=== PATIENT | male | born 1940 | race Caucasian/White ===

== ENCOUNTER → 2017-10-30 | Outpatient (CLI) | payer MEDICARE, OTHER ==
[~2017-10-30] MED LIST: ALLOPURINOL 10100 M1 PO; ASPIR 8181 MG PO; BRILINTA90 MG PO; CIMETIDINE 400400 MG PO; COREG3.125 MG PO; EFFIENT10 MG PO; ELIQUIS2.5 MG PO; FLEXERIL PO; KLOR-CON 1010 MEQ PO; LASIX 20 MG TAB20 MG PO; LEVAQUIN 500 M500 M2 PO; LEVOTHYROXIN0.025 MG PO; LIPITOR 20 MG T20 M1 PO; LISINOPRIL2.5 MG PO; LOPRESSOR25 PO; MACROBID 100 M100 MG PO; PACERONE 200 M200 M1 PO; PREDNISONE 20 M20 M1 PO; PROAIR HFA8.5 GM INH; PYRIDIUM200 M2 PO; SYNTHROID; SYNTHROID125 MC1 PO; TYLENOL PM EX-1 EACH PO; UROXATRAL; VENTOLIN HFA 1818 GM INH; XANAX 0.5 MG0.5 MG PO; ZANTAC 150MG T150 MG PO
--- NOTE | 2017-10-30 17:57 | CARDNUC ---
[place] [address] CARDIAC NUCLEAR IMAGING REPORT Name: BRADLEY CERVANTES Room: [facility]#: [id number] Admission: 10/30/17 Attend Phys: Carlton Webber, Discharge: Date of : 40 Date of Service: 10/30/17 1757 Report #: [id number] THIS REPORT FOR: //name// APPROVED REPORT Exam: Nuclear Stress Test Indication: Chest pain Patient Location: Out-Patient Stress Tech: Margo Rodriguez Stress Nurse: Nga Lynch RN Ht: 5 ft 11 in Wt: 197 lbs BSA: 2.10 m2 BMI: 27.47 Medical History Medical History: CAD s/p MN, CAD s/p stent, ICD, Heart failure, Cardiomyopathy Medications: atorvastatin Allergies: No known drug allergies Cardiac Risk Factors: Age, Hyperlipidemia Previous Cardiac Procedures: Myocardial infarction, PCI, ICD Exercise History: Sedentary Stress Test Details Stress Test: Pharmacologic stress testing performed using 0.4 mg of regadenoson per 5 mL given IV over 10 seconds. Reason for pharmacologic stress test: physical limitation. HR Resting HR: 87 bpm Max Heart Rate (APMHR): 143 bpm Max HR Achieved: 102 bpm Target HR (85% APMHR): 121 bpm % of APMHR: 71 Recovery HR: 92 bpm BP Resting BP: 130/81 mmHg Max BP: 139/70 mmHg ECG Resting ECG: Paced Rhythm Stress ECG: Paced Rhythm Recovery ECG: Paced Rhythm Clinical Reason for Termination: [place] [address] CARDIAC NUCLEAR IMAGING REPORT Name: BRADLEY CERVANTES Room: [facility] AMANDA Anju#: [id number] Admission: 10/30/17 Attend Phys: Carlton Webber, Discharge: Date of : 40 Date of Service: 10/30/17 1757 Report #: [id number] Stress Symptoms: None Exercise duration: 0 min sec Exercise capacity: 1.0 METs The patient had no significant symptoms with Lexiscan infusion. Stress ECG Conclusion The baseline 12-lead electrocardiogram shows AV sequential pacing. EKGs obtained during and post Lexiscan infusion show atrial sensed ventricular paced rhythm. No significant stress-induced arrhythmias identified. NM EXAM: Myocardial Perfusion REST/STRESS Resting Data Rest SPECT myocardial perfusion imaging was performed in supine position 45 minutes following the intravenous injection of 11.9 mCi of Tc-99m Sestamibi. Time of rest injection: 0750 Date: 10/30/2017 The images were gated to evaluate regional wall motion and calculate left ventricular ejection fraction. Administration Route: IV Administration Site: Right AC Pharmacologic Stress Pharmacologic stress test was performed by injecting Regadenoson 0.4 mg IV push followed by the intravenous injection of 36 mCi of Tc-99m Sestamibi. Time of stress injection: 919 Date: 10/30/2017 Administration Route: IV Administration Site: Right AC Gated Stress SPECT was performed 45 minutes after stress injection. The images were gated to evaluate regional wall motion and calculate left ventricular ejection fraction. Prone imaging was performed. Study Quality Study: Good Artifact: No artifact Study Data At rest, the left ventricular ejection fraction was 14%.. Post stress, the left ventricular ejection was 13%.. TID = 1.07. [place] [address] CARDIAC NUCLEAR IMAGING REPORT Name: BRADLEY CERVANTES Room: [facility]#: [id number] Admission: 10/30/17 Attend Phys: Carlton Webber, Discharge: Date of : 40 Date of Service: 10/30/17 1757 Report #: [id number] Perfusion There is a large in size severe in intensity defect involving the entire inferior parts of the inferolateral wall extending from base to apex. No significant reversible defects identified. Wall Motion There is severe global hypokinesis noted. The inferior wall inferolateral frost appear akinetic. The apex appears akinetic. Left ventricle is significantly dilated. Nuclear Conclusion ECG Findings: non-diagnostic Clinical Findings: negative for ischemia Nuclear Findings: negative for ischemia Exercise Capacity: not assessed Left Ventricular Function: abnormal Myocardial perfusion images at rest and stress suggest prior extensive inferolateral infarct. Gated images show a dilated ventricle that is severely hypokinetic to akinetic. Left ventricular systolic function is severely decreased as outlined above. The study is at least moderate risk based on underlying left ventricular systolic dysfunction. Findings consistent with ischemic cardiomyopathy. No findings of significant ischemia were identified. <Conclusion> The baseline 12-lead electrocardiogram shows AV sequential pacing. EKGs obtained during and post Lexiscan infusion show atrial sensed ventricular paced rhythm. No significant stress-induced arrhythmias identified. <ELECTRONICALLY SIGNED> By: Keenan Minor MD, FACC 10/30/171756 56 56 Keenan Minor MD, FACC /INF
== END ==
LOC: M.NUC 10-23 13:36
DX: I25.5 Ischemic cardiomyopathy (principal); N18.3 Chronic kidney disease, stage 3 (moderate); E78.5 Hyperlipidemia, unspecified; E03.9 Hypothyroidism, unspecified; I50.9 Heart failure, unspecified; Z95.810 Presence of automatic (implantable) cardiac defibrillator

== ENCOUNTER 2017-11-06 09:06 | Inpatient (IN) | payer MEDICARE, OTHER ==
[~2017-11-06] VITALS: Ht 182.9 cm; Wt 92.5 kg
[2017-11-06] VITALS (13 sets, daily range): BP systolic 111–125; BP diastolic 69–82
--- NOTE | ~2017-11-06 | H ---
[address] [address] HISTORY AND PHYSICAL Name: BRADLEY CERVANTES Room: [address] IN .R.#: [id number] Admission: 11/06/17 Attend Phys: Carlton Webber MD Discharge: 11/07/17 Date of : 40 Report #: [id number] THIS REPORT FOR: //name// Please refer to the History and Physical performed in the physician's office. By: 1147Medical Records Staff ALYSSA /BRITTANY
[~2017-11-06 09:06] MED LIST changes: -ASPIR 8181 MG PO; -BRILINTA90 MG PO; -EFFIENT10 MG PO; -ELIQUIS2.5 MG PO; -KLOR-CON 1010 MEQ PO; -LEVAQUIN 500 M500 M2 PO; -LISINOPRIL2.5 MG PO; -LOPRESSOR25 PO; -MACROBID 100 M100 MG PO; -PACERONE 200 M200 M1 PO; -PROAIR HFA8.5 GM INH; -PYRIDIUM200 M2 PO; -SYNTHROID; -SYNTHROID125 MC1 PO; -TYLENOL PM EX-1 EACH PO; -XANAX 0.5 MG0.5 MG PO; -ZANTAC 150MG T150 MG PO
[2017-11-06 09:47] LABS: HEMATOCRIT 40.5 % (42.0-52.0); HEMOGLOBIN 13.3 gm/dL (14.0-18.0); MCH 33.3 pg (26.0-34.0); MCHC 32.8 g/dL (28.0-37.0); MCV 101.7 fL (80.0-100.0); MPV 8.4 fl. (7.2-11.1); RBC 3.98 mil/uL (4.50-6.00); RDW-CV 14.3 % (10.5-14.5); WBC 8.5 thou/uL (4.0-11.0)
[2017-11-06 09:56] LABS: ANION GAP 11 mmol/L (7-16); APTT 28.8 Seconds (25.0-31.3); BUN 24 mg/dL (7-18); CALCIUM 8.7 mg/dL (8.5-10.1); CHLORIDE 103 mmol/L (98-107); CO2 26 mmol/L (21-32); CREATININE 1.7 mg/dL (0.6-1.3); GLUCOSE 106 mg/dL (70-99); INR 1.1; POTASSIUM 4.1 mmol/L (3.5-5.1); PROTIME 10.3 Seconds (9.20-11.50); SODIUM 140 mmol/L (136-145)
[2017-11-06 10:00] LABS: ALBUMIN 3.6 g/dL (3.4-5.0); ALKALINE PHOSPHATASE 131 U/L (46-116); CHOLESTEROL 154 mg/dL (<200); HDL CHOLESTEROL 48 mg/dL (>40); LDL CHOLESTEROL 91 mg/dL (<100); SGOT 20 U/L (15-37); SGPT 26 U/L (30-65); TC:HDL 3.2 Ratio (Not establshd); TOTAL BILIRUBIN 0.8 mg/dL (<0.1-1.0); TOTAL PROTEIN 7.4 g/dL (6.4-8.2); TRIGLYCERIDE 77 mg/dL (<150); VLDL 15 mg/dL (<40)
[2017-11-06 10:01] LABS: SERUM ASSESSMENT Clear
[2017-11-06] MEDS ORDERED: SYNTHROID (11:12)
[2017-11-06] MEDS ORDERED: ASPIR 8181 MG PO (11:14)
--- NOTE | 2017-11-06 15:29 | EKG ---
[place] [address] ELECTROCARDIOGRAM REPORT Name: BRADLEY CERVANTES Room: [address] ADM IN M.R.#: [id number] Admission: 11/06/17 Attend Phys: Carlton Webber MD Discharge: Date of : 40 Report #: [id number] THIS REPORT FOR: //name// [facility] Test Date: 2017-11-06 Test Time: 10:49:51 Pat Name: BRADLEY CERVANTES Department: Room: [facility] Gender: M Millstone Cleaner: : 1940 Requested By: Carlton Wbeber Order Number: [id number] Reading MD: Carlton Webber Measurements Intervals [place] Rate: 80 P: 70 GA: 164 QRS: 251 QRSD: 145 T: 7 QT: 419 QTc: 484 Interpretive Statements Atrial-sensed ventricular-paced rhythm No further analysis attempted due to paced rhythm Compared to ECG 10/06/2017 08:17:59 No significant changes Electronically Signed On 11-06-2017 15:29:01 ASSISTANT PROFESSOR OF PSYCHOLOGY by Carlton Webber [email or web address] <ELECTRONICALLY SIGNED> By: Carlton Webber MD, [facility] 11/06/17 1529 1049 1049 Carlton Webber MD, [facility] /EPI
--- NOTE | 2017-11-06 15:30 | EKG ---
[place] [address] ELECTROCARDIOGRAM REPORT Name: BRADLEY CERVANTES Room: [address] ADM IN M.R.#: [id number] Admission: 11/06/17 Attend Phys: Carlton Webber MD Discharge: Date of : 40 Report #: [id number] THIS REPORT FOR: //name// [facility] Test Date: 2017-11-06 Test Time: 14:32:39 Pat Name: BRADLEY CERVANTES Department: Room: [facility] Gender: M Provider Service Representative: : 1940 Requested By: Bradley Rust Order Number: [id number] Reading MD: Carlton Webber Measurements Intervals [place] Rate: 96 P: 97 CO: 177 QRS: -63 QRSD: 140 T: 133 QT: 371 QTc: 469 Interpretive Statements Atrial-sensed ventricular-paced rhythm No further analysis attempted due to paced rhythm Baseline wander in lead(s) V1 Compared to ECG 10/06/2017 08:17:59 No significant changes Electronically Signed On 11-06-2017 15:30:23 MATERIALS HANDLING COORDINATOR by Carlton Webber [email or web address] <ELECTRONICALLY SIGNED> By: Carlton Webber MD, [facility] 11/06/17 1530 1432 1432 Carlton Webber MD, [facility] /EPI
[2017-11-07] VITALS: BP 121/79
[2017-11-07 04:00] VITALS: BP 101/68
[2017-11-07 05:11] LABS: HEMATOCRIT 37.6 % (42.0-52.0); HEMOGLOBIN 12.7 gm/dL (14.0-18.0); MCH 33.8 pg (26.0-34.0); MCHC 33.9 g/dL (28.0-37.0); MCV 99.9 fL (80.0-100.0); RBC 3.76 mil/uL (4.50-6.00); RDW-CV 14.1 % (10.5-14.5); WBC 8.2 thou/uL (4.0-11.0)
[2017-11-07 05:36] LABS: CALCIUM 8.9 mg/dL (8.5-10.1); CREATININE 1.7 mg/dL (0.6-1.3); POTASSIUM 3.6 mmol/L (3.5-5.1); TROPONIN-I LEVEL 0.16 ng/mL (<0.06)
[2017-11-07 08:00] VITALS: BP 85/65
[2017-11-07 11:23] VITALS: BP 110/68
--- NOTE | 2017-11-07 12:10 | CARD ---
[address] [address] CARDIAC CATH REPORT Name: BRADLEY CERVANTES Room: [address] IN ..#: [id number] Admission: 11/06/17 Attend Phys: Carlton Webber MD Discharge: Date of : 40 Report #: [id number] THIS REPORT FOR: //name// APPROVED REPORT Patient Details Patient Status: Out-Patient Room #: The patient is a 77 year-old male Event Personnel Carlton Webber Geriatric Care Manager, Lanie Piedra RN, Ronald Fitzpatrick Svoboda, Mindy RTR Monitor, Bradley Rust President And Chief Operating Officer, Mariela Dunbar RN Superintendent Job, Pan Madrigal (R) Monitor Procedures Performed Selective coronary arteriography with percutaneous coronary mention deployment of a drug-eluting stent at the site of significant mid LAD stenosis Indication Unstable angina Risk Factors Hypercholesterolemia, Hypertension Previous Procedures/Diagnoses Previous PCI Admission/Lab Medications/Medications given during procedure Aspirin, Platelet Aff. Inhib., Angiomax bolus and infusion Procedure Narrative The patient was brought electively to the Cardiac Catheterization Laboratory and was prepped and draped in a sterile manner. The right femoral was infiltrated with 1% Lidocaine subcutaneous anesthesia. A [place] 6 FR sheath was inserted into the Right Femoral Artery. Coronary angiography was performed using coronary diagnostic catheters. The right coronary system was accessed and visualized with a Diagnostic catheter. The left coronary system was accessed and visualized with a Diagnostic catheter. The left ventricle was accessed and visualized with a Diagnostic catheter. Pre-demployment femoral angiogram was performed . Closure device was deployed with a 8 Fr Angioseal. The patient tolerated the procedure well and there were no complications associated with the procedure[place] [address] CARDIAC CATH REPORT Name: BRADLEY CERVANTES Room: [address]#: [id number] Admission: 11/06/17 Attend Phys: Carlton Webber MD Discharge: Date of : 40 Report #: [id number] hematoma. Intraoperative Conscious Sedation Sedation start time: 11:423 Case end Time: 12:58 Fentanyl 25 mcg Versed 2 mg Fluoro Time: 9.6 minutes Dose: DAP 89998 cGycm2 1436 mGy Contrast Type and Amount: Visipaque 165 ml Coronary Angiography The patient's coronary anatomy is left dominant. Diagnostic Cath Left Main 0% narrowing LAD 30% proximal with 80% mid LAD stenosis Circumflex Dominant vessel with 40% proximal mid and distal narrowings Right Coronary Nondominant vessel with 0% narrowing Left Ventriculography Left Ventriculography was not performed. Hemodynamics The aortic pressure is 100/65 mmHg with a mean of 76 mmHg. The left ventricular pressure is 100/13 mmHg with a mean of mmHg. The left ventricular end diastolic pressure is 24 mmHg. PCI Technique Lesion Anticoagulation was achieved with Angiomax. Patient was preloaded with Angiomax IV 13.5 ml. Percutaneous coronary intervention was performed on the mid left anterior descending artery segment. A 6F XB LAD 3.5 Guide Catheter was used to engage the ostium. A IG: ProwaterFlex 180CM Interventional Guidewire was used to cross the lesion. BALLOON DILATION A Balloon catheter Trek RX 2.5 X 12 was inserted and inflated up to 10.00atm for 9seconds. Repeat angiography revealed the following post-dilatation results: 20% narrowing. Additional Inflation: 10.00atm for 14seconds. STENT DEPLOYMENT A drug-eluting stent Xience Alpine RX 2.5X15 was inserted and inflated up to 8.00atm for 12seconds. Additional Inflation: 10.00atm [place] [address] CARDIAC CATH REPORT Name: BRADLEY CERVANTES Room: [address]#: [id number] Admission: 11/06/17 Attend Phys: Carlton Webber MD Discharge: Date of : 40 Report #: [id number] for 8seconds. Final angiography reveals 0 % stenosis with GIACOMO 3 flow. Conclusion #1 significant coronary artery disease characterized by the following: A 30% proximal LAD narrowing with 80% mid vessel stenosis B dominant circumflex with 40% proximal mid and distal narrowings #2 successful percutaneous coronary intervention with deployment of drug-eluting stent at site of 80% mid LAD stenosis with 0% residual narrowing following stent deployment and GIACOMO-3 flow the distal vessel. Recommendations Aggressive Medical Therapy Medications Administered Aspirin (any) Ticagrelor <ELECTRONICALLY SIGNED> By: Bradley Rust MD, [facility] 11/07/17 1210 1210 1210Bradley Rust MD, [facility] /INF
[2017-11-07 12:22] VITALS: BP 117/74
[2017-11-07] MEDS ORDERED: XANAX 0.5 MG0.5 MG PO (14:13)
[2017-11-07] MEDS ORDERED: EFFIENT10 MG PO (14:13)
[2017-11-07] MEDS ORDERED: LOPRESSOR25 PO (14:13)
[2017-11-07] MEDS ORDERED: BRILINTA90 MG PO (14:18)
--- NOTE | 2017-11-07 14:39 | EKG ---
[place] [address] ELECTROCARDIOGRAM REPORT Name: BRADLEY CERVANTES Room: [address] ADM IN M.R.#: [id number] Admission: 11/06/17 Attend Phys: Carlton Webber MD Discharge: Date of : 40 Report #: [id number] THIS REPORT FOR: //name// [facility] Test Date: 2017-11-07 Test Time: 04:42:52 Pat Name: BRADLEY CERVANTES Department: Room: [facility] Gender: M Patternator: [id number] : 1940 Requested By: Bradley Rust Order Number: [id number] Reading MD: Carlton Webber Measurements Intervals [place] Rate: 144 P: -19 NC: 102 QRS: 2 QRSD: 196 T: 184 QT: 358 QTc: 554 Interpretive Statements wide complex tachycardia Compared to ECG 11/06/2017 14:32:39 Ventricular-paced complex(es) or rhythm no longer present Atrial-sensed ventricular-paced complex(es) or rhythm no longer present Electronically Signed On 11-07-2017 14:38:57 PRINCIPAL AUTOMATION ENGINEER by Carlton Webber [email or web address] <ELECTRONICALLY SIGNED> By: Carlton Webber MD, FAC 11/07/17 1438 0442 0442 Carlton Webber MD, [facility] /EPI
--- NOTE | 2017-11-07 14:39 | EKG ---
[place] [address] ELECTROCARDIOGRAM REPORT Name: BRADLEY CERVANTES Room: [address] IN R.#: [id number] Admission: 11/06/17 Attend Phys: Carlton Webber MD Discharge: Date of : 40 Report #: [id number] THIS REPORT FOR: //name// [facility] Test Date: 2017-11-07 Test Time: 04:52:54 Pat Name: BRADLEY CERVANTES Department: y Room: Gender: Lead Ramp Service Man: [id number] : 1940 Requested By: Order Number: [id number] Reading MD: Carlton Webber Measurements Intervals [place] Rate: 104 P: 0 CT: 102 QRS: 268 QRSD: 189 T: 66 QT: 431 QTc: 567 Interpretive Statements Ventricular-paced complexes No further analysis attempted due to paced rhythm Compared to ECG 11/06/2017 14:32:39 Atrial-sensed ventricular-paced complex(es) or rhythm no longer present Electronically Signed On 11-07-2017 14:39:05 DREDGE MATE by Carlton Webber [email or web address] <ELECTRONICALLY SIGNED> By: Carlton Webber MD, FACC 11/07/17 1439 0452 0452 Carlton Webber MD, [facility] /EPI
[2017-11-07 15:15] VITALS: BP 117/74
--- NOTE | 2017-11-10 09:51 | D ---
[address] [address] DISCHARGE SUMMARY Name: BRADLEY CERVANTES Room: [address] IN M.R.#: [id number] Admission: 11/06/17 Attend Phys: Carlton Webber MD Discharge: 11/07/17 Date of : 40 Report #: [id number] THIS REPORT FOR: //name// CC: David Webber DATE OF SERVICE: 11/07/2017 FINAL DIAGNOSES: 1. Unstable angina. 2. Coronary artery disease status post percutaneous coronary intervention to his mid left anterior descending. 3. Patent stent in proximal left anterior descending. 4. Chronic systolic congestive heart failure. 5. Anxiety. 6. Nonsustained ventricular tachycardia. 7. Status post prior implantable cardioverter-defibrillator implantation. BRIEF HOSPITAL SUMMARY: The patient who was originally treated for his ischemic cardiomyopathy in [place] just recently moved to [place] and presented to our office for evaluation for chest pain and shortness of breath. He had an abnormal stress test and evaluation with a cardiac catheterization demonstrated chronically occluded right coronary artery, but severe disease in his nome left anterior descending coronary artery distally to a previously placed left anterior descending proximal stent. This was treated with a drug-eluting stent per Dr. Rust. The patient has heart failure and his end diastolic pressure was in the 18-20 mmHg range, which was appropriate for this type of patient. Post procedurally the patient did well except he had significant symptoms of anxiety, which was treated with p.r.n. anxiolytic Xanax as well as brief nonsustained ventricular tachycardia less than 10 beats. The patient was prescribed outpatient oral beta blockers, but refused to take them, but did take them inpatient and will be discharged on metoprolol 25 mg twice daily in addition to his usual medications and these include the following: Baby aspirin, atorvastatin 20 mg daily, Synthroid 125 mcg daily and he will be started on Brilinta 90 mg p.o. b.i.d. for his percutaneous coronary intervention. FOLLOWUP: Follow up in our office in 1 week. <ELECTRONICALLY SIGNED> By: Carlton Webber MD, FACC 11/10/17 0951 1157 1905Carlton Webber MD, FACC /nt
== END 2017-11-07 15:00 | disposition home or self-care (01) | DRG 246 ==
LOC: M.CL 09:06 → M.2W 13:15 → M.TBA-CV 13:15 → M.2W 13:43
PROVIDERS: Internal Medicine; ADMIT Internal Medicine Cardiovascular Disease
PROC: 027034Z Dilation of Coronary Artery, One Artery with Drug-eluting Intraluminal Device, Percutaneous Approach (ICD-10-PCS; principal; 2017-11-07)
PROC: B2111ZZ Fluoroscopy of Multiple Coronary Arteries using Low Osmolar Contrast (ICD-10-PCS; principal; 2017-11-07)
PROC: 4A023N7 Measurement of Cardiac Sampling and Pressure, Left Heart, Percutaneous Approach (ICD-10-PCS; principal; 2017-11-07)
DX: I25.110 Atherosclerotic heart disease of native coronary artery with unstable angina pectoris (principal); I50.43 Acute on chronic combined systolic (congestive) and diastolic (congestive) heart failure; I47.2 Ventricular tachycardia; N18.3 Chronic kidney disease, stage 3 (moderate); F41.9 Anxiety disorder, unspecified; Z95.810 Presence of automatic (implantable) cardiac defibrillator

== ENCOUNTER → 2017-11-10 | Outpatient (CLI) | payer MEDICARE, OTHER ==
[~2017-11-10] MED LIST changes: +ASPIR 8181 MG PO; +BRILINTA90 MG PO; +EFFIENT10 MG PO; +ELIQUIS2.5 MG PO; +KLOR-CON 1010 MEQ PO; +LEVAQUIN 500 M500 M2 PO; +LISINOPRIL2.5 MG PO; +LOPRESSOR25 PO; +MACROBID 100 M100 MG PO; +PACERONE 200 M200 M1 PO; +PROAIR HFA8.5 GM INH; +PYRIDIUM200 M2 PO; +SYNTHROID; +SYNTHROID125 MC1 PO; +TYLENOL PM EX-1 EACH PO; +XANAX 0.5 MG0.5 MG PO; +ZANTAC 150MG T150 MG PO
== END ==
LOC: M.RAD 14:19
DX: J18.9 Pneumonia, unspecified organism (principal); J98.11 Atelectasis; R91.8 Other nonspecific abnormal finding of lung field; I50.22 Chronic systolic (congestive) heart failure; I25.5 Ischemic cardiomyopathy; N18.3 Chronic kidney disease, stage 3 (moderate); I25.10 Atherosclerotic heart disease of native coronary artery without angina pectoris; Z87.891 Personal history of nicotine dependence; Z95.810 Presence of automatic (implantable) cardiac defibrillator

== ENCOUNTER 2017-11-13 13:54 | Inpatient (IN) | payer MEDICARE, OTHER ==
[~2017-11-13] VITALS: Ht 182.9 cm; Wt 85.7 kg
[~2017-11-13 13:54] MED LIST changes: -ELIQUIS2.5 MG PO; -KLOR-CON 1010 MEQ PO; -LEVAQUIN 500 M500 M2 PO; -LISINOPRIL2.5 MG PO; -MACROBID 100 M100 MG PO; -PACERONE 200 M200 M1 PO; -PROAIR HFA8.5 GM INH; -PYRIDIUM200 M2 PO; -SYNTHROID125 MC1 PO; -TYLENOL PM EX-1 EACH PO; -ZANTAC 150MG T150 MG PO
[2017-11-13] MEDS ORDERED: CIMETIDINE 400400 MG PO (14:07)
[2017-11-13] MEDS ORDERED: TYLENOL PM EX-1 EACH PO (14:08)
[2017-11-13] MEDS ORDERED: KLOR-CON 1010 MEQ PO (14:09)
[2017-11-13] MEDS ORDERED: PROAIR HFA8.5 GM INH (14:09)
[2017-11-13] MEDS ORDERED: LEVAQUIN 500 M500 M2 PO (14:10)
[2017-11-13 14:33] LABS: ABSOLUTE BASOPHILS 0.1 thou/uL (0.0-0.2); ABSOLUTE EOSINOPHILS 0.4 thou/uL (0.0-0.7); ABSOLUTE LYMPHOCYTES 1.6 thou/uL (0.8-5.3); ABSOLUTE MONOCYTES 0.8 thou/uL (0.0-1.2); ABSOLUTE NEUTROPHILS 4.6 thou/uL (1.6-8.1); BASOPHILS 1.1 %; EOSINOPHILS 4.8 %; HEMATOCRIT 39.5 % (42.0-52.0); HEMOGLOBIN 13.1 gm/dL (14.0-18.0); LYMPHOCYTES 21.7 %; MCH 33.6 pg (26.0-34.0); MCHC 33.1 g/dL (28.0-37.0); MCV 101.6 fL (80.0-100.0); MONOCYTES 10.8 %; MPV 8.5 fl. (7.2-11.1); NUCLEATED RBCS 0 /100WBC; PLATELET COUNT* 297 thou/uL (150-400); POLYS 61.6 %; RBC 3.89 mil/uL (4.50-6.00); RDW-CV 14.1 % (10.5-14.5); WBC 7.4 thou/uL (4.0-11.0)
[2017-11-13 14:42] LABS: CREATININE 1.8 mg/dL (0.6-1.3); POTASSIUM 3.8 mmol/L (3.5-5.1)
[2017-11-13 14:45] LABS: APTT 25.2 Seconds (25.0-31.3); INR 1.1; PROTIME 10.9 Seconds (9.20-11.50)
[2017-11-13 14:49] LABS: INFLUENZA A ANTIGEN None Detected (None Detect); INFLUENZA B ANTIGEN None Detected (None Detect)
[2017-11-13 14:58] LABS: ALBUMIN 3.4 g/dL (3.4-5.0); CK-MB MASS 0.8 ng/mL (<0.5-3.6); TOTAL BILIRUBIN 0.5 mg/dL (<0.1-1.0); TOTAL PROTEIN 7.3 g/dL (6.4-8.2); TROPONIN-I LEVEL 0.09 ng/mL (<0.06)
[2017-11-13 17:44] VITALS: BP 106/76
[2017-11-13 18:25] VITALS: BP 108/59
[2017-11-13] MEDS ORDERED: ZANTAC 150MG T150 MG PO (19:18)
--- NOTE | 2017-11-13 19:33 | NUR ---
RECEIVED PT FROM ER 1830. PT IS ALERT AND ORIENTED X4. VSS. HEARING AID REPAIRER TRACING SR. PT DENIES PAIN. NO SOA. UP STANDBY ASSIST. DISCUSSED HOME MEDICATIONS WITH THE PATIENT. PATIENT AND HIS FAMILY STATED HE DOES NOT TAKE BRILINTA AT HOME ANYMORE AND HE IS ONLY ELIQUIS AND A BABY ASA. STATED BRILINTA CAUSED HIM TO 'GO DOWN THE DRAIN'. ORIENTED PATIENT TO ROOM. HEARING AID REPAIRER TRACING A V PACED RHYTHM. CALL LIGHT WITHIN REACH. WILL CONTINUE TO MONITOR.
[2017-11-13 20:00] VITALS: BP 126/85
[2017-11-14] VITALS: BP 99/65
[2017-11-14 04:00] VITALS: BP 100/65
--- NOTE | 2017-11-14 05:16 | NUR ---
PATIENT ALERT AND ORIENTED. REQUESTED MINIMAL INTERRUPTION IN SLEEP. INSTRUCTED ON MGMT OF CHF INLCUDING DECREASING SODIUM, DAILY WEIGHTS AND CHRONIC PROGRESSIVE CONDITION. PATIENT VERBALIZES I KNOW I WONT GET BETTER BUT CAN WORK TO REMAIN STABLE. HOURLY ROUNDING AND FALL PRECAUTIONS IN PLACE. WILL CONTINUE TO MONITOR.
[2017-11-14 08:30] VITALS: BP 118/70
[2017-11-14 13:10] VITALS: BP 103/65
--- NOTE | 2017-11-14 13:45 | EKG ---
[place] [address] ELECTROCARDIOGRAM REPORT Name: BRADLEY CERVANTES Room: [place] [address] ADM IN .R.#: [id number] Admission: 11/13/17 Attend Phys: Anamaria Hill MD Discharge: Date of : 40 Report #: [id number] THIS REPORT FOR: //name// [facility] Test Date: 2017-11-13 Test Time: 22:37:44 Pat Name: BRADLEY CERVANTES Department: Room: [facility] Gender: M Veterans' Counselor: VELIA : 1940 Requested By: Parish Castro Order Number: [id number] MD: Berny Garces Measurements Intervals [place] Rate: 84 P: 75 LA: 183 QRS: -55 QRSD: 141 T: 121 QT: 388 QTc: 459 Interpretive Statements Atrial-sensed ventricular-paced complexes No further analysis attempted due to paced rhythm Compared to ECG 11/07/2017 04:52:54 No significant changes Electronically Signed On 11-14-2017 13:45:45 REPROGRAPHICS TECHNICIAN by Berny Garces [email or web address] <ELECTRONICALLY SIGNED> By: Herminia Garces MD, [facility] 11/14/17 1345 36 36 FEveline Garces MD, [facility] /EPI
--- NOTE | 2017-11-14 13:46 | EKG ---
[place] [address] ELECTROCARDIOGRAM REPORT Name: BRADLEY CERVANTES Room: [place] [address] ADM IN M.R.#: [id number] Admission: 11/13/17 Attend Phys: Anamaria Hill MD Discharge: Date of : 40 Report #: [id number] THIS REPORT FOR: //name// [facility] Test Date: 2017-11-14 Test Time: 02:14:11 Pat Name: BRADLEY CERVANTES Department: Room: [place] [address] Gender: M Counter Dish Carrier: VELIA : 1940 Requested By: Parish Castro Order Number: [id number] Reading MD: Berny Garces Measurements Intervals [place] Rate: 77 P: 71 CO: 172 QRS: 259 QRSD: 165 T: 158 QT: 442 QTc: 501 Interpretive Statements Atrial-sensed ventricular-paced rhythm No further analysis attempted due to paced rhythm Compared to ECG 11/07/2017 04:52:54 No significant changes Electronically Signed On 11-14-2017 13:46:16 TYPING OFFICE WORKER by Berny Garces [email or web address] <ELECTRONICALLY SIGNED> By: Herminia Garces MD, [facility] 11/14/17 1346 0214 0214 Herminia Garces MD, [facility] /EPI
--- NOTE | 2017-11-14 14:52 | NUR ---
ASSUMED PT CARE AT 0700 PT IS ALERT AND ORIENTED X 4 PT DENIES PAIN OR SOA ON RA, PT IS NOT A FALL RISK, PT STATES HE FELT LIGHT HEADED AFTER TAKING MEDS EARLY AM CHECKED EMAR PT HAS TAKEN SYNTHROID PT STATES HE HAS BEEN ON THIS MED FOR YEARS AND HAS NOT EXPERIENCED SIDE EFFECTS PT BLOOD PRESSURE IS ON THE LOWER SIDE, PT TROPNINS ARE ELEVATED CARDIOLOGY IS FOLLOWING PT MAY DO CATH ON THURSDAY, PT STATES HE HAS NOT HAD BOWEL MOVEMENT FOR SEVERAL DAYS TALKED WITH PHYSICIAN ABOUT ORDERING LAXATIVE OR STOOL SOFTNER, PT IS VPACED ON THE MONITOR, WILL CONTINUE TO MONITOR
[2017-11-14 16:00] VITALS: BP 105/74
[2017-11-15] VITALS: BP 101/63
[2017-11-15 04:00] VITALS: BP 91/53
--- NOTE | 2017-11-15 06:07 | NUR ---
PATIENT SLOWLY PROGRESSING. NO ACUTE HEMODYNAMIC CHANGES OVER NIGHT. A/V PACED. ALERT AND ORIENTED ON ROOM AIR. PT REPORTS DENIES CHEST PAIN OR SOB. HE WANTS TO TRY WALKING AROUND THE UNIT. PT HAS NO CONCERNS AT THIS TIME. WILL CONTINUE TO MONITOR CLOSELY. CALL LIGHT IN PLACE. EDUCATION HAS BEEN PROVIDED. VOICED UNDERSTANDING.
[2017-11-15 09:30] VITALS: BP 111/63
[2017-11-15 12:00] VITALS: BP 105/56
--- NOTE | 2017-11-15 15:44 | NUR ---
ASSUMED PT CARE AT 0700 PT IS ALERT AND ORIENTED X 4 PT DENIES PAIN OR SOA ON RA, PT IS UP AD ALESSANDRA PT IS NOT A FALL RISK, CARDIOLOGY SAW PT WANTS TO OBSERVE PT OVERNIGHT ON CURRENT REGIMNE PT MAY DISCHARGE TOMORROW, PT IS AV PACED ON THE MONITOR, PT IS COOPERATIVE, WILL CONTINUE TO MONITOR
--- NOTE | 2017-11-15 15:54 | EKG ---
[place] [address] ELECTROCARDIOGRAM REPORT Name: BRADLEY CERVANTES Room: [place] [address] ADM IN .R.#: [id number] Admission: 11/13/17 Attend Phys: Anamaria Hill MD Discharge: Date of : 40 Report #: [id number] THIS REPORT FOR: //name// [facility] Test Date: 2017-11-13 Test Time: 14:00:01 Pat Name: BRADLEY CERVANTES Department: Room: [place] [address] Gender: M Kiln Mechanic: : 1940 Requested By: Parish Castro Order Number: [id number] Reading MD: Berny Garces Measurements Intervals [place] Rate: 84 P: 81 MA: 184 QRS: -53 QRSD: 149 T: 140 QT: 412 QTc: 488 Interpretive Statements Atrial-sensed ventricular-paced rhythm No further analysis attempted due to paced rhythm Compared to ECG 11/07/2017 04:52:54 No significant changes Electronically Signed On 11-15-2017 15:53:55 LAUNDRY AIDE by Berny Garces [email or web address] <ELECTRONICALLY SIGNED> By: Herminia Garces MD, [facility] 11/15/17 1553 1400 1400 Herminia Garces MD, [facility] /EPI
[2017-11-15 16:00] VITALS: BP 100/63
[2017-11-15 20:00] VITALS: BP 109/64
[2017-11-16] VITALS: BP 96/62
[2017-11-16 04:00] VITALS: BP 97/59
--- NOTE | 2017-11-16 04:53 | NUR ---
PT A/OX4, PACED RHYTHM ON THE MONITOR, RA, UP AD ALESSANDRA, FREE FROM SOA/PAIN, IV SL, MEDS/ASSESSMENT PER CHARTING, HOURLY ROUNDING IN PLACE, FALL PRECAUTIONS IN PLACE, PT USES CALL LIGHT TO MAKE NEEDS KNOWN, VSS, WILL CONT TO MONITOR.
[2017-11-16 06:23] LABS: CREATININE 1.7 mg/dL (0.6-1.3); MAGNESIUM 2.1 mg/dL (1.8-2.4); POTASSIUM 4.2 mmol/L (3.5-5.1)
[2017-11-16 08:00] VITALS: BP 104/60
[2017-11-16 08:59] VITALS: BP 97/59
--- NOTE | 2017-11-16 11:16 | NUR ---
ASSUMED PT CARE AT 0700 PT IS ALERT AND ORIENTED X 4 PT IS NOT A FALL RISK PT REFUSED TO HAVE A NEW IV PLACED AFTER IV INFILTRATED PT IS VPACED ON MONITOR, AWAITING RESULTS OF ECHO AND CARDIOLOGY DISCHARGE TO [facility] PT TO HOME, GAVE PT MIRALAX PT STATES HE HAS NOT HAD BOWEL MOVEMENT IN 3 DAYS, WILL CONTINUE TO MONITOR
[2017-11-16 12:25] VITALS: BP 104/65
[2017-11-16 16:00] VITALS: BP 98/60
[2017-11-16] MEDS ORDERED: SYNTHROID125 MC1 PO (16:20)
[2017-11-16] MEDS ORDERED: LISINOPRIL2.5 MG PO (16:21)
--- NOTE | 2017-11-16 16:49 | 2DMMODE ---
[place] [address] 2 D/M-MODE ECHOCARDIOGRAM Name: BRADLEY CERVANTES Room: [facility] ADM IN [facility]#: [id number] Admission: 11/13/17 Attend Phys: Anamaria Hill, Discharge: Date of : 40 Date of Service: 11/16/17 1649 Report #: [id number] THIS REPORT FOR: //name// APPROVED REPORT Study performed: 11/16/2017 14:17:06 EXAM: Comprehensive 2D, Doppler, and color-flow Echocardiogram Patient Location: In-Patient Room #: [facility] Status: routine BSA: 2.10 HR: 71 bpm BP: 97/59 mmHg Rhythm: NSR Other Information Study Quality: Good Indications Congestive Heart Failure Dyspnea 2D Dimensions LVEF(%): 4.64 (>50%) IVSd: 11.82 (7-11mm) LVOT Diam: 20.80 (18-24mm) LVDd: 67.68 mm PWd: 11.90 (7-11mm) Ascending Ao: 26.99 (22-36mm) LVDs: 66.27 (25-40mm) Aortic Root: 32.85 mm Quick's LVEF: 4.64 % Volumes Left Atrial Volume (Systole) LA ESV Index: 50.00 mL/m2 Aortic Valve AoV Peak Collin.: 1.03 m/s AO Peak Gr.: 4.22 mmHg LVOT Max P.09 mmHg AO Mean Gr.: 2.24 mmHg LVOT Mean P.94 mmHg LVOT Max V: 0.72 m/s AO V2 VTI: 14.52 cm LVOT Mean V: 0.44 m/s JEOVANY (VTI): 2.44 cm2 LVOT V1 VTI: 10.44 [place] [address] 2 D/M-MODE ECHOCARDIOGRAM Name: BRADLEY CERVANTES Room: [address] IN .R.#: [id number] Admission: 11/13/17 Attend Phys: Anamaria Hill, Discharge: Date of : 40 Date of Service: 11/16/17 1649 Report #: [id number] E/A Ratio: 3.04 MV Decel. Time: 140.89 ms MV E Max Collin.: 1.42 m/s MV PHT: 40.86 ms MVA (PHT): 5.38 cm2 TDI E/Lateral E': 28.40 E/Medial E': 35.50 Medial E' Collin.: 0.04 m/s Lateral E' Collin.: 0.05 m/s Pulmonary Valve PV Peak Collin.: 0.84 m/s PV Peak Gr.: 2.80 mmHg Tricuspid Valve TR Peak Gr.: 33.54 mmHg RVSP: 38.00 mmHg Left Ventricle Left ventricle is moderately dilated. There is abnormal segmental wall motion with inferobasilar akinesis and hypokinesis of remaining segments There is normal left ventricular wall thickness. Left ventricular systolic function is severely decreased. LVEF is 25%. Grade IV - fixed restrictive diastolic dysfunction. Right Ventricle The right ventricle is normal size. The right ventricular systolic function is normal. Pacemaker lead is present in the right ventricle. Atria Left atrium is moderately dilated. The right atrium size is normal. Aortic Valve Aortic valve leaflets are mildly thickened. No aortic regurgitation is present. There is no aortic valvular stenosis. Mitral Valve The mitral valve is normal in structure. Moderate to severe mitral regurgitation No evidence of mitral valve stenosis. Tricuspid Valve The tricuspid valve is normal in structure. Mild tricuspid regurgitation. The RVSP is 35-40 mmHg. Pulmonic Valve The pulmonary valve is normal in structure. There [place] [address] 2 D/M-MODE ECHOCARDIOGRAM Name: BRADLEY CERVANTES Room: [address] IN [facility]#: [id number] Admission: 11/13/17 Attend Phys: Anamaria Hill, Discharge: Date of : 40 Date of Service: 11/16/17 1649 Report #: [id number] valvular regurgitation. Great Vessels The aortic root is normal in size. IVC is normal in size and collapses with >50% inspiration Pericardium There is no pericardial effusion. <Conclusion> Left ventricle is moderately dilated. There is normal left ventricular wall thickness. Left ventricular systolic function is severely decreased. LVEF is 25%. Grade IV - fixed restrictive diastolic dysfunction. The right ventricle is normal size. Left atrium is moderately dilated. Aortic valve leaflets are mildly thickened. No aortic regurgitation is present. There is no aortic valvular stenosis. The mitral valve is normal in structure. Moderate to severe mitral regurgitation No evidence of mitral valve stenosis. The tricuspid valve is normal in structure. Mild tricuspid regurgitation. The RVSP is 35-40 mmHg. IVC is normal in size and collapses with >50% inspiration There is abnormal segmental wall motion with inferobasilar akinesis and hypokinesis of remaining segments Pacemaker lead is present in the right ventricle. <ELECTRONICALLY SIGNED> By: Bradley Rust MD, FACC 11/16/17 164 48 48 Bradley Rust MD, FACC /INF
--- NOTE | 2017-11-16 18:00 | NUR ---
PT DISCHARGE EDUCATED PT ON AFTERCARE INSTRUCTIONS INCLUDING MEDICATIONS AND FOLLOW UP APPOINTMENTS PT HAS NEW SCRIPT FOR SUPRIYA PT STATED UNDERSTANDING PT ESCORTED TO VEHICLE BY HOSPITAL PERSONAL
--- NOTE | 2017-11-18 16:36 | CON ---
[address] [address] CONSULTATION Name: BRADLEY CERVANTES Room: [address] IN .R.#: [id number] Admission: 11/13/17 Attend Phys: Anamaria Hill MD Discharge: 11/16/17 Date of : 40 Report #: [id number] THIS REPORT FOR: //name// CC: KATJA Hill Carlton Webber Patient's Chart DATE OF SERVICE: 11/13/2017 HISTORY OF PRESENT ILLNESS: The patient is a 77-year-old white male who I was asked to see in the hospital after he complained of chest pain and shortness of breath. The patient has an extensive past medical history. Unfortunately, not all of his old records are available. The history is obtained from the patient and his daughter who was present. The patient apparently had a myocardial infarction 2 years ago while he was living in [place]. He had a coronary stent placed. He wore a LifeVest for 2 months and then apparently had implantation of an ICD because of his cardiomyopathy. He moved to [place] couple of months ago to live near daughter. Recently, the patient was having frequent chest pain. He underwent a stress test that was abnormal. He was admitted here a week ago and underwent a cardiac catheterization by Dr. Bradley Rust. 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 There is a stent in the LAD. He had another drug-eluting stent placed in the LAD. Left ventricular end diastolic pressure is 20. The patient noticed to have a run of nonsustained ventricular tachycardia. The patient in the past could not tolerate carvedilol. He was then discharged on Toprol-XL 25 mg a day, aspirin, Lipitor, Synthroid, and he was started on Effient 10 mg a day. The patient returned to see my nurse practitioner 3 days ago. The patient notes since his discharge, he has had a cough. He apparently had a chest x-ray by the nurse practitioner that showed evidence of pneumonia. The patient was started on antibiotics yesterday. However, today he had an episode of chest pain, so his daughter brought him to the Emergency Room. He describes the pain as a sharp pain, left side of his chest, nonexertional. He has been short of breath and coughing. Denied any fever or edema. He notes flutter in his chest. Has had no syncope or discharge of his defibrillator. PAST MEDICAL HISTORY: Otherwise significant for history of hyperlipidemia. MEDICATIONS: Consist of allopurinol, Xanax, aspirin, Lipitor, Effient, Synthroid, Lasix, metoprolol. ALLERGIES: He has no known drug allergies. FAMILY HISTORY: [place] [address] CONSULTATION Name: BRADLEY CERVANTES Room: [address] IN M.R.#: [id number] Admission: 11/13/17 Attend Phys: Anamaria Hill MD Discharge: 11/16/17 Date of : 40 Report #: [id number] SOCIAL HISTORY: He is . He used to live in [place], then moved to [place] where he is retired for years, now moved back to [place]. No smoking. Rarely uses alcohol. REVIEW OF SYSTEMS: He has had no history of stroke, asthma, peptic ulcer disease, liver disease. He has chronic kidney disease, no psychiatric illness, no chronic skin condition. PHYSICAL EXAMINATION: GENERAL: Revealed an elderly male, lying in bed, appeared in no acute distress. VITAL SIGNS: His blood pressure is 110/70, pulse is 80, he is afebrile. HEENT: He is anicteric. Conjunctivae pink: Mucous membranes moist. NECK: Veins nondistended. No carotid bruits. CHEST: Clear to auscultation. CARDIOVASCULAR: Regular rate and rhythm. ABDOMEN: Soft, nontender. EXTREMITIES: Had no edema. Posterior tibial pulse 1+ bilaterally. SKIN: Warm, dry. NEUROLOGIC: Nonfocal. DIAGNOSTIC DATA: His ECG in the Emergency Room shows P-wave sensing and ventricular capture. His workup, he actually had an echocardiogram in May that showed ejection fraction of 25%, left atrial enlargement, moderate mitral regurgitation, mild tricuspid insufficiency. His nuclear stress test in May showed negative for ischemia. There was evidence of previous infarction, however. His chest x-ray in the Emergency Room today showed small pulmonary nodule, otherwise cardiomegaly, defibrillator in place, atelectasis. Lungs are clear of acute process. LAB WORK: Sodium 139, BUN 28, creatinine 1.8. His troponin 0.09, 0.16 last week after the stent. BNP 5394. His white blood cell count 7.4, hemoglobin 13.1. IMPRESSION AND RECOMMENDATIONS: 1. Dilated cardiomyopathy. The patient could not tolerate an NETO inhibitor because of low blood pressure. He cannot tolerate carvedilol. I would consider Entresto. I would not recommend spironolactone because of his chronic kidney disease. His prognosis is also guarded. 2. Recent coronary stent. I would continue aspirin and Effient. 3. Chronic kidney disease. The patient followed by Nephrology. 4. Previous implantation of defibrillator. No recent discharges. <ELECTRONICALLY SIGNED> By: Preston Stokes MD, [facility] 11/18/17 1636 1609 [id number] Stokes MD, JONO /nt
== END 2017-11-16 18:40 | disposition home or self-care (01) | DRG 302 ==
LOC: M.ERS 13:54 → M.2W 14:52 → M.TBA-ER 14:52 → M.2W 18:11
PROVIDERS: Family Medicine; Internal Medicine; ADMIT Internal Medicine
DX: I25.119 Atherosclerotic heart disease of native coronary artery with unspecified angina pectoris (principal); I50.43 Acute on chronic combined systolic (congestive) and diastolic (congestive) heart failure; J98.11 Atelectasis; I42.0 Dilated cardiomyopathy; N18.3 Chronic kidney disease, stage 3 (moderate); E78.5 Hyperlipidemia, unspecified; I25.5 Ischemic cardiomyopathy; E03.9 Hypothyroidism, unspecified; K21.9 Gastro-esophageal reflux disease without esophagitis; K59.00 Constipation, unspecified; Z95.0 Presence of cardiac pacemaker; Z95.5 Presence of coronary angioplasty implant and graft

== ENCOUNTER 2017-11-26 12:36 | Emergency (ER) | payer MEDICARE, OTHER ==
[~2017-11-26] VITALS: Ht 182.9 cm; Wt 90.7 kg
[~2017-11-26 12:36] MED LIST changes: +KLOR-CON 1010 MEQ PO; +LEVAQUIN 500 M500 M2 PO; +LISINOPRIL2.5 MG PO; +PROAIR HFA8.5 GM INH; +SYNTHROID125 MC1 PO; +TYLENOL PM EX-1 EACH PO; +ZANTAC 150MG T150 MG PO
[2017-11-26] MEDS ORDERED: PACERONE 200 M200 M1 PO (12:54)
[2017-11-26] MEDS ORDERED: ELIQUIS2.5 MG PO (12:54)
[2017-11-26 13:10] LABS: ABSOLUTE BASOPHILS 0.1 thou/uL (0.0-0.2); ABSOLUTE EOSINOPHILS 0.6 thou/uL (0.0-0.7); ABSOLUTE NEUTROPHILS 5.2 thou/uL (1.6-8.1); BASOPHILS 0.8 %; HEMATOCRIT 41.6 % (42.0-52.0); HEMOGLOBIN 13.7 gm/dL (14.0-18.0); LYMPHOCYTES 22.2 %; MCHC 32.9 g/dL (28.0-37.0); MCV 100.3 fL (80.0-100.0); MONOCYTES 10.8 %; MPV 8.5 fl. (7.2-11.1); NUCLEATED RBCS 0 /100WBC; PLATELET COUNT* 240 thou/uL (150-400); POLYS 59.2 %; RBC 4.15 mil/uL (4.50-6.00); RDW-CV 14.4 % (10.5-14.5); WBC 8.9 thou/uL (4.0-11.0)
[2017-11-26 13:11] LABS: URINE BILIRUBIN NEGATIVE (Negative); URINE BLOOD 3+ (Negative); URINE CLARITY TURBID; URINE COLOR RED; URINE GLUCOSE-RANDOM TRACE (Negative); URINE KETONES TRACE (Negative); URINE PROTEIN 3+ (Negative)
[2017-11-26 13:12] LABS: URINE LEUKOCYTES-REFLEX 3+ (Negative); URINE NITRITE-REFLEX POSITIVE (Negative)
[2017-11-26 13:14] LABS: SQUAMOUS 0-3 Few /LPF (0-3)
[2017-11-26 13:15] LABS: BACTERIA-REFLEX 1-9 Few /HPF (None Seen); CASTS None Seen /LPF (None Seen); CRYSTALS None Seen /LPF (None Seen); MUCUS 0-3 Light strn/LPF (None Seen); URINE RBC >20 Many /HPF (0-2); URINE WBC-REFLEX 6-15 Few /HPF (0-5)
[2017-11-26 13:17] LABS: CALCIUM 9.6 mg/dL (8.5-10.1); CREATININE 1.7 mg/dL (0.6-1.3); POTASSIUM 3.9 mmol/L (3.5-5.1)
[2017-11-26] MEDS ORDERED: PYRIDIUM200 M2 PO (13:36)
[2017-11-26] MEDS ORDERED: MACROBID 100 M100 MG PO (13:36)
[2017-11-26 13:47] VITALS: BP 144/79
== END 2017-11-26 13:49 | disposition still patient (30) ==
LOC: M.ERS 12:36
PROVIDERS: Nurse Practitioner
DX: N39.0 Urinary tract infection, site not specified (principal); I50.9 Heart failure, unspecified

== ENCOUNTER → 2018-12-28 | Outpatient (CLI) | payer MEDICARE, OTHER ==
[~2018-12-28] MED LIST changes: +ELIQUIS2.5 MG PO; +MACROBID 100 M100 MG PO; +PACERONE 200 M200 M1 PO; +PYRIDIUM200 M2 PO
[2018-12-28 11:24] LABS: HEMOGLOBIN 13.3 gm/dL (14.0-18.0); MCH 33.6 pg (26.0-34.0); MCHC 33.2 g/dL (28.0-37.0); MPV 8.5 fl. (7.2-11.1); RBC 3.96 mil/uL (4.50-6.00); RDW-CV 14.7 % (10.5-14.5); WBC 7.2 thou/uL (4.0-11.0)
--- NOTE | 2018-12-28 11:32 | NUR ---
ARRIVED AMBULATORY. MADE SELF COMFORTABLE. PT REPORT MILRINONE RUNNIG AND UNABLE TO STOP. PICC INTACT AND DRESSING C/D/I. WEEKLY LABS DRAWN FROM PICC PER POLICY. LINE FLUSHED AND CAP CHANGED. PICC DRESSING CHANGED PER PROTOCOL. DENIES AND PROBLEMS, NEEDS OR QUESTIONS AT DISCHARGE.
[2018-12-28 11:46] LABS: CALCIUM 8.8 mg/dL (8.5-10.1); CREATININE 1.5 mg/dL (0.6-1.3); POTASSIUM 3.3 mmol/L (3.5-5.1)
== END ==
LOC: M.INFUS 10:30
PROVIDERS: Internal Medicine
DX: I50.22 Chronic systolic (congestive) heart failure (principal)

== ENCOUNTER 2019-10-17 13:40 | Emergency (ER) | payer MEDICARE, OTHER ==
[~2019-10-17] VITALS: Ht 182.9 cm; Wt 83.9 kg
[2019-10-17] MEDS ORDERED: BUSPIRONE HCL10 MG PO (13:57)
[2019-10-17] MEDS ORDERED: COLACE100 MG PO (13:58)
[2019-10-17] MEDS ORDERED: AMBIEN5 MG PO (13:58)
[2019-10-17] MEDS ORDERED: COUMADIN 3 MG TA3 M1 PO (13:58)
[2019-10-17] MEDS ORDERED: TRAZODONE 150150 M1 PO (13:58)
[2019-10-17] MEDS ORDERED: SPIRONOLACTONE25 MG PO (13:58)
[2019-10-17] MEDS ORDERED: ASA81BEC PO (13:58)
[2019-10-17] MEDS ORDERED: MEXILETINE 150150 MG PO (13:59)
[2019-10-17] MEDS ORDERED: PROAIR HFA8.5 GM INH (13:59)
[2019-10-17] MEDS ORDERED: AFRIN15 M1 NS (13:59)
[2019-10-17 15:22] LABS: ABSOLUTE BASOPHILS 0.1 thou/uL (0.0-0.2); ABSOLUTE EOSINOPHILS 0.3 thou/uL (0.0-0.7); ABSOLUTE LYMPHOCYTES 0.9 thou/uL (0.8-5.3); ABSOLUTE MONOCYTES 0.8 thou/uL (0.0-1.2); ABSOLUTE NEUTROPHILS 5.2 thou/uL (1.6-8.1); EOSINOPHILS 4.2 %; HEMOGLOBIN 10.5 gm/dL (14.0-18.0); LYMPHOCYTES 12.3 %; MCH 29.1 pg (26.0-34.0); MCHC 31.8 g/dL (28.0-37.0); MCV 91.6 fL (80.0-100.0); MONOCYTES 10.5 %; MPV 7.5 fl. (7.2-11.1); NUCLEATED RBCS 0 /100WBC; PLATELET COUNT* 409 thou/uL (150-400); RDW-CV 19.5 % (10.5-14.5); WBC 7.3 thou/uL (4.0-11.0)
[2019-10-17 15:30] LABS: POTASSIUM 4.3 mmol/L (3.5-5.1)
[2019-10-17 15:35] LABS: ALBUMIN 3.6 g/dL (3.4-5.0); TOTAL BILIRUBIN 0.4 mg/dL (<0.1-1.0)
[2019-10-17 16:17] VITALS: BP 112/80
--- NOTE | 2019-10-18 16:03 | EKG ---
[place] [address] ELECTROCARDIOGRAM REPORT Name: IEMR CERVANTES Room: [facility]#: [id number] Admission: 10/17/19 Attend Phys: Discharge: 10/17/19 Date of : 40 Report #: [id number] THIS REPORT FOR: //name// [facility] ED Test Date: 2019-10-17 Test Time: 15:02:45 Pat Name: IMER CERVANTES Department: Room: Gender: M Pigment [employer]er: : 1940 Requested By: Parish Castro Order Number: [id number] MD: Felix Rust Measurements Intervals [place] Rate: 73 P: 144 MT: 124 QRS: 268 QRSD: 220 T: 89 QT: 548 QTc: 604 Interpretive Statements Paced rhythm from Ventricle Artifact in lead(s) I,II,III,aVR,aVL,aVF,V1,V2,V3,V4,V5,V6 Compared to ECG 11/14/2017 02:14:11 A sensed V paced rhythm persists Electronically Signed On 10-18-2019 16:02:51 [employer] by Felix Rust [email or web address] <ELECTRONICALLY SIGNED> By: Felix Rust MD, [facility] 10/18/19 1602 1502 1502 Felix Rust MD, [facility] /EPI
== END 2019-10-17 16:20 | disposition home or self-care (01) ==
LOC: M.ERS 13:40
PROVIDERS: Family Medicine
DX: R04.0 Epistaxis (principal); R55 Syncope and collapse; I50.9 Heart failure, unspecified

== ENCOUNTER 2020-03-02 22:36 | Emergency (ER) | payer MEDICARE, OTHER ==
[~2020-03-02] VITALS: Ht 182.9 cm; Wt 89.4 kg
[~2020-03-02 22:36] MED LIST changes: +AFRIN15 M1 NS; +AMBIEN5 MG PO; +ASA81BEC PO; +BUSPIRONE HCL10 MG PO; +COLACE100 MG PO; +COUMADIN 3 MG TA3 M1 PO; +MEXILETINE 150150 MG PO; +SPIRONOLACTONE25 MG PO; +TRAZODONE 150150 M1 PO
[2020-03-02] MEDS ORDERED: TORSEMIDE10 MG PO (22:58)
[2020-03-02] MEDS ORDERED: PROTONIX40 M2 PO (22:58)
[2020-03-02] MEDS ORDERED: NORVASC 2.5 MG2.5 M1 PO (22:58)
[2020-03-02] MEDS ORDERED: TYLENOL PM EX-1 EACH PO (22:59)
[2020-03-02] MEDS ORDERED: BUSPIRONE HCL10 MG PO (23:01)
[2020-03-03 00:13] VITALS: BP 134/78
== END 2020-03-03 00:09 | disposition home or self-care (01) ==
LOC: M.ERS 22:36
DX: S51.012A Laceration without foreign body of left elbow, initial encounter (principal); I50.9 Heart failure, unspecified; Z95.0 Presence of cardiac pacemaker; Z95.5 Presence of coronary angioplasty implant and graft; W22.8XXA Striking against or struck by other objects, initial encounter; Y93.89 Activity, other specified; Y92.89 Other specified places as the place of occurrence of the external cause; Y99.8 Other external cause status

== ENCOUNTER 2021-03-30 18:52 | Emergency (ER) | payer MEDICARE, OTHER ==
[~2021-03-30] VITALS: Ht 182.9 cm; Wt 96.2 kg
[~2021-03-30 18:52] MED LIST changes: +NORVASC 2.5 MG2.5 M1 PO; +PROTONIX40 M2 PO; +TORSEMIDE10 MG PO
[2021-03-30 21:10] VITALS: BP 111/78
== END 2021-03-30 21:10 | disposition home or self-care (01) ==
LOC: M.ERS 18:52
DX: S51.811A Laceration without foreign body of right forearm, initial encounter (principal); S83.203A Other tear of unspecified meniscus, current injury, right knee, initial encounter; S83.204A Other tear of unspecified meniscus, current injury, left knee, initial encounter; S63.591A Other specified sprain of right wrist, initial encounter; I50.9 Heart failure, unspecified; W10.8XXA Fall (on) (from) other stairs and steps, initial encounter; Y93.89 Activity, other specified; Y92.89 Other specified places as the place of occurrence of the external cause; Y99.8 Other external cause status